=== PATIENT | female | born 1995 | race Two or more races ===

== ENCOUNTER 2018-08-01 18:21 | Emergency (ER) | payer SELFPAY ==
[~2018-08-01] VITALS: Ht 162.6 cm; Wt 63.5 kg
[2018-08-01 18:27] VITALS: BP 117/69
--- NOTE | 2018-08-01 18:41 | PHYS DOC ---
Adult General Chief Complaint Chief Complaint: INSECT BITE HPI HPI 22-year-old female presents to ER via POV for concerns of spider bite. Patient reports she woke in the middle of the night and felt something crawling on her and found a spider. Patient states she had instant stinging and burning sensatio n on her mid upper back. Patient states throughout the day she has had increased pain at the site and has felt fatigued. She denies taking any [id number] medications prior to arrival. She is uncertain of last menstrual cycle as they have been irregular. Patient denies being on control. Review of Systems Review of Systems Constitutional: Reports feeling fatigued and having chills during her Eyes: Denies change in visual acuity, redness, or eye pain [] HENT: Denies nasal congestion or sore throat [] Respiratory: Denies cough or shortness of breath [] Cardiovascular: Denies chest pain or tightness GI: Denies abdominal pain, nausea, vomiting, bloody stools or diarrhea [] : Denies dysuria or hematuria [] Musculoskeletal: Denies joint pain [] Integument: Reports redness/burning sensation mid upper back Neurologic: Denies headache, focal weakness or sensory changes [] All other systems were reviewed and found to be within normal limits, except as documented in this note. Current Medications Current Medications Current Medications Medications (Trade) Dose Ordered Sig/Uma Start Time Stop Time Status Last Admin Dose Admin Acetaminophen (Tylenol) 1,000 mg 1X ONCE 08/01/18 18:45 08/01/18 18:46 DC 08/01/18 18:59 1,000 MG Allergies Allergies Allergies Coded Allergies Type Severity Reaction Last Updated Verified No Known Drug Allergies 08/01/18 No Physical Exam Physical Exam Constitutional: Well developed, well nourished, no acute distress, non-toxic appearance. [] HENT: Normocephalic, atraumatic, oropharynx moist- no pharyngeal swelling/erythema, nose normal. [] Eyes: Pupils equal, conjunctiva normal, no discharge. [] Neck: Normal range of motion, no tenderness, supple, no stridor. [] Cardiovascular: Heart rate regular rhythm, no murmur [] Lungs & Thorax: Bilateral breath sounds clear to auscultation- resp. equal/nonlabored Abdomen: Bowel sounds normal, soft, no tenderness Skin: Warm, dry. Back: Mid upper back with rounded area approx. 8x8 cm warm to touch- no obvious insect sting/bite area. No palp abscess or visible papules, no CVA tenderness. [] Extremities: No tenderness, no cyanosis, no clubbing, ROM intact, no edema. [] Neurologic: Alert and oriented X 3, normal motor function, normal sensory function, no focal deficits noted. [] Psychologic: Affect normal, judgement normal, mood normal. [] Current Patient Data Vital Signs Vital Signs Date Time Temp Pulse Resp B/P (MAP) Pulse Ox O2 Delivery O2 Flow Rate FiO2 08/01/18 18:27 99.1 109 20 117/69 (85) 96 Room Air 99.1 Lab Values Laboratory Tests Test 08/01/18 18:38 08/01/18 18:40 Urine Collection Type Unknown Urine Color Yellow Urine Clarity Clear Urine pH 5.5 Urine Specific [place] >=1.030 Urine Protein Negative mg/dL (NEG-TRACE) Urine Glucose (UA) Negative mg/dL (NEG) Urine Ketones (Stick) 15 mg/dL (NEG) Urine Blood Negative (NEG) Urine Nitrite Negative (NEG) Urine Bilirubin Small (NEG) Urine Urobilinogen Dipstick 1.0 mg/dL (0.2 mg/dL) Urine Leukocyte Esterase Small (NEG) Urine RBC Occ /HPF (0-2) Urine WBC 20-40 /HPF (0-4) Urine Squamous Epithelial Cells Many /LPF Urine Bacteria Many /HPF (0-FEW) Urine Mucus Marked /LPF Urine Yeast Present /HPF POC Urine HCG, Qualitative Hcg positive (Negative) EKG EKG [] Radiology/Procedures Radiology/Procedures [] Course & Med Decision Making Course & Med Decision Making Pertinent Labs reviewed. (See chart for details) Patient was evaluated in the ER for concerns of spider bite to mid upper back. Patient had no obvious insect sting but did have rounded area of warmth and redness. Patient had concerns of so UCG was obtained and it was positive. Patient states her came home on leave 2 months ago and that was her last menstrual cycle. Patient denies any abdominal cramping or vaginal symptoms. Pt's case was discussed with Dr. Calix- he went also evaluated pt's back. Pt advised on use of cool compress to area, OTC benedryl and topical ointment for tx. patient advised on need to establish [employer]NAL[employer]. Education provided on signs and symptoms to return to ER. Discharge instructions were discussed. Patient to follow-up with primary care physician if symptoms persist or with any concerns. Patient's UA with UTI- pt was discharged prior to those results being seen. Will call pt and provide Keflex Rx for UTI. 08/02/18 1120 a.m. This provider spoke with pt via phone- she reports her upper back redness had improved with cool compresses. Discussed UTI and need for Rx. Again advised on need for f/u with program analyst. Will call in Rx to [facility] [address] [phone] Keflex 500mg BID x7 days. Dragon Disclaimer Dragon Disclaimer This electronic medical record was generated, in whole or in part, using a voice recognition dictation system. Departure Departure Impression: Primary Impression: Insect sting Disposition: HOME, SELF-CARE Condition: STABLE Referrals: NO PCP (PCP) Patient Instructions: Insect Sting Allergy Additional Instructions: Over the counter benedryl and topical hydrocortisone cream to area until symptoms improve. If symptoms persist or worsen follow-up with your primary doctor for re-evaluati on and further care. You had a positive test so you should call and schedule an appointment with your [employer] for further evaluation and care. KAELA VU APRN Aug 01, 2018 18:41
[2018-08-01] MEDS ORDERED: ACETAMINOPHEN 500 MG TABLET PO ONE (18:45)
[2018-08-01 19:15] LABS: BILIRUBIN,URINE SMALL (NEG); CLARITY,URINE CLEAR; COLOR,URINE YELLOW; NITRITE,URINE NEGATIVE (NEG); PH,URINE 5.5; PROTEIN,URINE NEGATIVE (NEG-TRACE)
[2018-08-01 19:20] LABS: BACTERIA,URINE MANY /HPF (0-FEW); RBC,URINE OCC /HPF (0-2); SQUAMOUS EPITHELIAL CELL,UR MANY /LPF; WBC,URINE 20-40 /HPF (0-4); YEAST,URINE PRESENT /HPF
== END 2018-08-01 19:05 | disposition home or self-care (01) ==
LOC: ER 18:21
DX: T63.301A Toxic effect of unspecified spider venom, accidental (unintentional), initial encounter (principal); R20.8 Other disturbances of skin sensation; Y92.89 Other specified places as the place of occurrence of the external cause
CPT/HCPCS: 81001; 81025; 87086; 99284